=== PATIENT | female | born 1995 | race Caucasian/White ===

== ENCOUNTER 2020-10-20 15:13 | Emergency (ER) | payer OTHER ==
--- NOTE | 2020-10-20 15:37 | ER Document Report ---
ED Medical Screen (RME) - General Stated Complaint: HAND LACERATION - HPI Notes: 10/20/20 15:31 Rapid Medical Exam HPI: Pt is a 24yo female that presents to the ER w/ right hand laceration. hanging xmas decorations and a glass panel decoration fell off the wall and landed onto the back her hand cutting the dorsum of her hand. glass did shatter so FB is possible. tetanus up to date. denies rom or sensory deficit to digits. 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 Physical Exam: GENERAL: Well-appearing, well-nourished and in no acute distress. HEAD: Atraumatic, normocephalic. ENT: Moist mucous membranes. RESP: Respirations even and unlabored CV- Regular rate. NEURO: No focal neurological deficits. Moves all extremities spontaneously and on command. msk- right hand- 2cm gaping laceration to dorsum of hand just proximal 4th/5th MCP. wound edges are macerated. from of digits. extension intact to 4th/5th digits. wound appears clean- no gross FB radial pulse 2+ cap refill < 3 sec sensation intact to all digits. My involvement in this patients care was limited to a rapid initial assessment. A comprehensive ED assessment and evaluation of the patient, analysis of test results, treatment, and completion of the medical decision making process will be performed by other ER providers. - Related Data Allergies/Adverse Reactions: No Known Allergies Allergy (Verified 10/20/20 15:30) Physical Exam - Vital signs Vitals: Temp Pulse Resp BP Pulse Ox 97.9 F 120 H 16 147/62 H 98 10/20/20 15:17 10/20/20 15:17 10/20/20 15:17 10/20/20 15:17 10/20/20 15:17 Course - Vital Signs Vital signs: Temp Pulse Resp BP Pulse Ox 97.9 F 120 H 16 147/62 H 98 10/20/20 15:17 10/20/20 15:17 10/20/20 15:17 10/20/20 15:17 10/20/20 15:17
[2020-10-20] MEDS ORDERED: LIDOCAINE 4%/TETRACAINE 0.5%/EPI 0.18% 5 ML TOPICAL SOLN TOP ONE (15:38)
[2020-10-20] MEDS ORDERED: LIDOCAINE 1% INJ-PF (10 MG/ML) 30 ML SDV INJ ONE (15:39)
--- NOTE | 2020-10-20 15:45 | ER Document Report ---
ED General - General Chief Complaint: Laceration Stated Complaint: HAND LACERATION - HPI Notes: Chief Complaint: Historian: History obtained from patient HPI: Pt is a 24yo female that presents to the ER w/ right hand laceration. She was hanging xmas decorations and a glass panel decoration fell off the wall and landed onto the back of her hand cutting the dorsum of her hand. glass did shatter so FB is possible. tetanus up to date. denies rom or sensory deficit to digits. 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 ROS: Constitutional: no fevers. HEENT: no QUINTERO, sore throat, or vision changes. CV: no chest pain or palpitations. Resp: no cough or SOB. GI: no abdominal pain, or n/v/d. : no dysuria, hematuria, or incont. MSK: no back pain, no joint swelling/redness. Skin: Right hand laceration Neuro: no seizures, weakness, numbness, or confusion. Hematological: no ecchymosis or easy bleeding. Endocrine: no polyuria/polydipsia, no heat/cold intolerance. Psych: no SI/HI, AH/VH or memory loss. PMHx: Reviewed and agree as charted by RN. PSHx: Reviewed and agree as charted by RN. SOCHx: Reviewed and agree as charted by RN. FHX: No significant familial comorbid conditions directly related to patient complaint Current Medications: Reviewed and agree with the patient medications as charted by the RN. Allergies: Reviewed and agree with the listed allergies as charted by the RN Physical Exam: Vitals: Reviewed in chart as documented by RN. General: Alert and in NAD. Head: Normocephalic; atraumatic Eyes: PERRLA, Conjunctivae clear sclerae non-icteric bilat ENT: no soft palate swelling or uvular deviation Neck: trachea midline, no unilateral swelling/tenderness/lymphadenopathy CV: RRR, no M/R/G; symmetric distal pulses Resp: respirations even and unlabored, CTA bilat. GI: abd soft and nondistended. NTTP. normal BS. no masses/HSM. no CVAT bilat MSK: Right hand2.5 cm gaping, macerated, laceration to the dorsum of the hand. Gated just proximal to the distal fourth and fifth MCP. Beds clean appearing with no gross foreign body. No active bleeding. no visualized bone or ligament injury. Full range of motion of digits. Extension intact the fourth and fifth digit. Pulse 2+ Cap refill less than 3 seconds Patient intact distally to all digits. Skin: warm, moist, good turgor. no rash/lesions Neuro: Alert and oriented X 4. following CN 2-12 intact. no unilateral weakness/numbness Psych: No SI/HI or AH/VH. ED Results: Medical Decision-Making: Medical Decision-making/Differential Diagnosis: Consider various etiologies including but not limited to skin/soft tissue structure injury, MSK injury, strain/sprain, fracture, dislocation, bursitis, tendonitis, contusion, ect Plan-we will get hand x-ray to rule out foreign body or bony involvement. Let applied to the wound. We will extensively irrigate and clean wound and then repaired with sutures. Patient is N/V intact. No signs of ligament or vascular injuries. PCP or ER follow-up in 1 week for suture removal. Discussed home wound care, infection signs, and return factors with patient. This course of action was discussed with the patient and/or family. They were amenable to this, verbalized understanding, and were without further questions. - Related Data Allergies/Adverse Reactions: No Known Allergies Allergy (Verified 10/20/20 15:30) Past Medical History - Social History Smoking Status: Never Smoker Frequency of alcohol use: None Drug Abuse: Other Family History: None Physical Exam - Vital signs Vitals: Temp Pulse Resp BP Pulse Ox 97.9 F 120 H 16 147/62 H 98 10/20/20 15:17 10/20/20 15:17 10/20/20 15:17 10/20/20 15:17 10/20/20 15:17 Course - Re-evaluation Re-evalutation: 10/20/20 17:11 Irrigated and repaired laceration. No foreign bodies identified. Wound is very macerated with multiple skin flaps. Questionable 1 whether some of this flaps retain enough perfusion. Nevertheless, I did suture and repair them. Discussed with patient that some these flaps at the poor perfusion day will not heal and it will require secondary healing. We will act as a biological Band-Aid. Will discharge home and I discussed home care, precautions, return factors, and suture removal. - Vital Signs Vital signs: Temp Pulse Resp BP Pulse Ox 97.9 F 120 H 16 147/62 H 98 12/06/20 15:17 10/20/20 15:17 10/20/20 15:17 10/20/20 15:17 10/20/20 15:17 Procedures - Laceration/Wound Repair Right Lateral Hand Time completed: 16:00 Wound length (cm): 3 Wound's Depth, Shape: Other - 3cm gaping, macerated laceration Laceration pre-procedure: Sterile drapes applied, Shur-Clens applied Anesthetic type: 1% Lidocaine Volume Anesthetic (mLs): 4 Wound explored: Clean, No foreign body removed Irrigated w/ Saline (mLs): 2,000 Wound Repaired With: Sutures Suture Size/Type: 4:0, Ethilon Number of Sutures: 9 Layer Closure?: No Post-procedure wound care: Sterile dressing applied Post-procedure NV exam normal: Yes Complications: No Discharge - Discharge Clinical Impression: Laceration of right hand Qualifiers: Encounter type: initial encounter Foreign body presence: without foreign body Qualified Code(s): S61.411A - Laceration without foreign body of right hand, initial encounter Condition: Stable Disposition: HOME, SELF-CARE Instructions: Laceration Care (OM) Additional Instructions: Follow printed directions. Keep wound clean and dry. Suture removal in 1 week by your doctor or in the ER. Watch for signs of infection and be evaluated immediately if you become concerned. Return to the ER if your condition worsens.
--- NOTE | 2020-10-20 16:18 | RADIOLOGY REPORT (SQ) ---
EXAM DESCRIPTION: HAND RIGHT 3 VIEWS IMAGES COMPLETED DATE/TIME: 10/20/2020 3:54 pm REASON FOR STUDY: laceration to hand by broken glass COMPARISON: None. EXAM PARAMETERS: NUMBER OF VIEWS: Three views. TECHNIQUE: AP, lateral and oblique radiographic images acquired of the right hand. LIMITATIONS: None. FINDINGS: MINERALIZATION: Normal. BONES: No acute fracture or dislocation. No worrisome bone lesions. JOINTS: No effusions. SOFT TISSUES: Soft tissue defect noted over the ulnar aspect of the dorsal hand. No radiopaque forei gn body. OTHER: No other significant finding. IMPRESSION: Dorsal soft tissue defect without underlying fracture or radiopaque foreign body. TECHNICAL DOCUMENTATION: JOB ID: [id number] 2010 [employer]- All Rights Reserved Reading location - IP/workstation name: [email or web address]
[2020-10-20 17:28] VITALS: BP 152/93
== END 2020-10-20 17:28 | disposition home or self-care (01) ==
LOC: ER 15:13
DX: S61.411A Laceration without foreign body of right hand, initial encounter (principal); W25.XXXA Contact with sharp glass, initial encounter
CPT/HCPCS: 12002; 99283; 73130; J3490 ×2